=== PATIENT | male | born 1995 | race Hispanic/Latino ===

== ENCOUNTER 2017-08-22 16:28 | Emergency (ER) | payer BC ==
[~2017-08-22] VITALS: Ht 172.7 cm; Wt 68.0 kg
[2017-08-22] MEDS ORDERED: ZOFRAN ODT4 MG PO (18:37)
== END 2017-08-22 22:02 | disposition home or self-care (01) ==
LOC: ED 16:28
DX: K52.9 Noninfective gastroenteritis and colitis, unspecified (principal); Z79.899 Other long term (current) drug therapy
CPT/HCPCS: 74177; 80053; 81001; 83690; 85025; 96374; 99284; J2405; Q9967

== ENCOUNTER 2020-07-22 12:15 | Emergency (ER) | payer BC ==
[~2020-07-22] VITALS: Ht 172.7 cm; Wt 68.0 kg
[~2020-07-22 12:15] MED LIST: ZOFRAN ODT4 MG PO
[2020-07-22] MEDS ORDERED: PROMETHAZINE HC25 M1 PO (12:32)
[2020-07-22] MEDS ORDERED: TRAMADOL HCL50 MG PO (12:32)
[2020-07-22] MEDS ORDERED: NORCO 5-325 TA1 EACH PO (15:49)
[2020-07-22] MEDS ORDERED: ONDANSETRON ODT8 MG PO (15:49)
== END 2020-07-22 16:30 | disposition home or self-care (01) ==
LOC: ED 12:15
DX: K85.90 Acute pancreatitis without necrosis or infection, unspecified (principal); Z79.891 Long term (current) use of opiate analgesic
CPT/HCPCS: 74177; 80053; 81001; 83690; 85025; 96361; 99284-25; J1170; J2405; J7030; Q9967